=== PATIENT | female | born 1970 | race African-American/Black ===

== ENCOUNTER 2020-09-16 00:23 | Emergency (ER) | payer OTHER ==
[~2020-09-16] VITALS: Ht 172.7 cm; Wt 109.0 kg
[2020-09-16] MEDS ORDERED: SODIUM CHLORIDE 0.9% 1,000 ML IV ONE (00:45)
[2020-09-16 01:38] LABS: CHLORIDE 103 mEq/L (98-107)
[2020-09-16 01:43] LABS: HCG SCREEN NEGATIVE
[2020-09-16 01:44] LABS: BASOPHILS % 0.3 % (0.0-2.0); EOSINOPHILS % 1.6 % (0.0-5.0); HEMATOCRIT. 29.5 % (36.0-48.0); HEMOGLOBIN. 8.9 g/dL (12.0-16.0); LYMPHOCYTES % 16.7 % (20.0-50.0); MEAN CORPUSCULAR VOLUME 63.4 fL (81.0-99.0); MONOCYTES % 8.1 % (2.0-8.0); NEUTROPHILS % 73.3 % (40.0-76.0); PLATELET 340 x1000/uL (130-400); RED BLOOD CELL COUNT 4.65 mill/uL (4.2-5.4); RED CELL DISTRIBUTION WIDTH 18.4 % (11.6-14.6)
[2020-09-16 01:45] LABS: ETHANOL BLOOD < 10 mg/dL
[2020-09-16 01:50] LABS: T4 FREE 0.96 ng/dL (0.76-1.46)
[2020-09-16 01:57] LABS: *AMPHETAMINES SCREEN URINE NEGATIVE (NEGATIVE); *BARBITURATES SCREEN URINE NEGATIVE (NEGATIVE); CANNABINOID URINE SCREEN NEGATIVE (NEGATIVE); METHADONE URINE SCREEN NEGATIVE (NEGATIVE)
[2020-09-16 01:58] LABS: *BENZODIAZEPINES SCREEN URINE NEGATIVE (NEGATIVE); *COCAINE SCREEN URINE NEGATIVE (NEGATIVE); OPIATES URINE SCREEN NEGATIVE (NEGATIVE); PHENCYCLIDINE URINE SCREEN NEGATIVE (NEGATIVE)
[2020-09-16] MEDS ORDERED: POTASSIUM CHLORIDE 20MEQ TABLET SR PO ONE (02:00)
[2020-09-16] MEDS ORDERED: POTA-79 MT (02:43)
[2020-09-16 02:50] VITALS: BP 132/79
[2020-09-16 04:53] LABS: PLATELET ESTIMATE NORMAL
== END 2020-09-16 02:56 | disposition home or self-care (01) ==
LOC: ER 00:23
DX: I47.1 Supraventricular tachycardia (principal); E87.8 Other disorders of electrolyte and fluid balance, not elsewhere classified; I10 Essential (primary) hypertension; F41.9 Anxiety disorder, unspecified
CPT/HCPCS: 36415; 71045; 80053; 80305; 80320; 83690; 83735; 83880; 84439; 84443; 84484; 84703; 85025; 93005; 99285; J7030; G0480